=== PATIENT | male | born 1995 | race Hispanic/Latino ===

== ENCOUNTER 2023-02-22 00:05 | Emergency (ER) | payer BC ==
[~2023-02-22] VITALS: Ht 167.6 cm; Wt 93.4 kg
[2023-02-22] MEDS ORDERED: AZITHROMYCIN 250 MG TABLET PO ONE (00:30)
[2023-02-22] MEDS ORDERED: CEFTRIAXONE 1G VIAL IM ONE (00:30)
[2023-02-22 00:44] VITALS: BP 126/60
== END 2023-02-22 01:41 | disposition home or self-care (01) ==
LOC: EDH 00:05
DX: N34.2 Other urethritis (principal)
CPT/HCPCS: 99284; 87797; 87486; 96372; J0696

== ENCOUNTER 2025-04-23 23:19 | Emergency (ER) | payer BC ==
[~2025-04-23] VITALS: Ht 167.6 cm; Wt 99.8 kg
--- NOTE | 2025-04-23 23:21 | NUR ---
UA CUP PROVIDED
--- NOTE | 2025-04-24 00:04 | EKG ---
[facility] Test Date: 2025-04-23 Test Time: 23:59:55 Pat Name: DERRICK ARAMBULA Department: ED Patient ID: [id number] Room: Gender: M [employer] Internship: [id number] : 1995 Requested By: BONNIE GOMEZ Order Number: [id number] Reading MD: Chi Peraza Measurements Intervals [place] Rate: 74 P: 28 [place]: 145 QRS: 33 QRSD: 97 T: 5 QT: 375 QTc: 416 Interpretive Statements Sinus rhythm No previous ECG available for comparison Electronically Signed On 04-24-2025 16:24:24 CDT by Chi Peraza Please click the below link to view image of tracing.
[2025-04-24 00:05] VITALS: BP 141/75; PULSE 77; RESP 18; TEMP 98.4; O2SAT 99
[2025-04-24 00:22] LABS: CREATININE 1.1 mg/dL (0.5-1.3); GLOMERULAR FILTR. RATE CALC 93.0 mL/min (>90); GLUCOSE,RANDOM 107.0 mg/dL (70-105); SODIUM SERUM 138.0 mmol/L (136-145); UREA NITROGEN, BLOOD 14.0 mg/dL (7-18)
[2025-04-24 00:26] LABS: ASPARTATE AMINOTRANSFERASE 34.0 U/L (10-37); TOTAL PROTEIN, SERUM 7.9 g/dL (6.0-8.3)
[2025-04-24 00:31] LABS: CREATINE KINASE, TOTAL 139 U/L (21-232)
[2025-04-24 00:34] LABS: IMMATURE GRANULOCYTE ABSOLUTE 0.02 K/uL (0-1); NUCLEATED RED BLOOD CELLS 0.0 % (0.0-0.19); PLATELET COUNT (AUTO) 220 K/uL (130-400); RED BLOOD CELL COUNT(AUTO) 5.49 MIL/uL (4.50-6.20); RED CELL DISTRIBUTION WIDTH 11.5 % (11.0-15.5); WHITE BLOOD COUNT (AUTO) 8.5 K/uL (4.8-10.8)
[2025-04-24 00:44] LABS: APPEARANCE,URINE CLEAR (CLEAR); GLUCOSE, URINE (UA) NEGATIVE (NEGATIVE); LEUKOCYTE ESTERASE ,URINE NEGATIVE Leu/uL (NEGATIVE); NITRATE,URINE NEGATIVE (NEGATIVE); OCCULT BLOOD,URINE NEGATIVE (NEGATIVE)
[2025-04-24 00:52] LABS: ADD UA MICROSCOPIC NO
[2025-04-24 01:01] LABS: AMPHET/METH SCREEN,URINE NEGATIVE (NEGATIVE); BARBITURATE SCREEN, URINE NEGATIVE (NEGATIVE); CANNABINOID SCREEN,URINE NEGATIVE (NEGATIVE); COCAINE SCREEN,URINE NEGATIVE (NEGATIVE)
--- NOTE | 2025-04-24 01:36 | HMCIMG ---
EXAM: CR Chest, 1 view. CLINICAL HISTORY: Shortness of breath. COMPARISON: None. FINDINGS: The lungs show no infiltrate or other acute findings. No pleural effusion or pneumothorax. The cardiomediastinal silhouette is within normal limits. No acute osseous abnormality. IMPRESSION: No acute cardiopulmonary pathology is evident. /[place]
--- NOTE | 2025-04-24 02:29 | ERN ---
ED Note History of Present Illness Stated Complaint: SOB, HYPERVENTILLATION Chief Complaint: Shortness of Breath Time Seen by MD: 22:23 Dictation: This is a 29-year-old male who comes into the emergency room with complaints of hyperventilation shortness of breath and left-sided rib and breast pain when he took a deep breath. Apparently all this started today and he is very tired and has varying schedules due to his job in the evening he began feeling tired and lethargic so he did a few pushups and also had a cookout and did not feel like himself. He felt dizzy. No fevers chills or rigors the pain is mostly in the left breast rib area. No nausea vomitings diarrhea hematemesis or melena no headache diplopia blurred vision facial droop motor weakness or seizure activity. 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 Spouse at bedside during my evaluation, he stated that he usually drinks more than 12 oz of coffee in the morning and as he was tired in the evening he drank 12 oz of coffee prior to all these symptoms. Also had a little shakiness. Temperature 98.3 pulse 99 respirations 20 blood pressure 151/72 with a pulse o ximetry of 100% on room air Allergies: Coded Allergies: No Known Allergies (Unverified Allergy, Unknown, 02/22/23) Past Medical History Past Medical History: No Pertinent History Surgical History: None Family History: Negative Social History: Negative RN Note Reviewed/Agreed w/PFSH: Yes Review of System Dictation Constitutional: Negative for fever,chills, and weight loss Eyes: Negative for injury, pain,redness, and discharge ENT: Negative for injury,pain or swelling Cardiovascular: Positive for chest pain, and lightheaded denied palpitations, and edema Respiratory: Negative for shortness of breath, cough, and wheezing, Abdomen/GI: Negative for abdominal pain, nausea, vomiting, diarrhea, and constipation Back: Negative for injury and pain : Negative for injury, bleeding and discharge MS/Extremity: Negative for injury and deformity Skin: Negative for rash, and discoloration Neuro: Negative for headache, weakness, numbness, tingling, and seizure positive for shakiness Psych: Negative for suicide ideation, homicidal ideation, and hallucinations Initial Vital Sign VS Vital Signs Date Time Temp Pulse Resp B/P (MAP) Pulse Ox O2 Delivery O2 Flow Rate FiO2 04/23/25 23:20 98.2 99 20 151/72 100 Room Air 04/24/25 00:05 0 21 Physical Exam Dictation General: awake, alert, NAD overweight young male Head/Face: Normocephalic, atraumatic Eyes: PERRL, EOMI, vision at baseline ENT: oral cavity clear, TMs clear, no signs of infection Mallampati 4 Neck: Trachea midline, supple, no nuchal rigidity very short neck, crowded oropharynx Cardiovascular: RRR, normal S1/S2, No MRGs, no JVD Respiratory: CTAB, no respiratory distress, No rales or wheezes Abdomen: Soft, non-tender, non-distended, normal bowel sounds, no guarding or rebound. Skin: Warm, dry, normal turgor, no rash MS/Extremity: Pulses equal, no cyanosis, neurovascular intact, FROM Neuro: COAx4, GCS 15, strength 5/5, CN 2-12 intact, normal cerebellar exam, normal gait, Psych: Normal behavior, mood, and affect normal Extremities-trace edema without any palpable cords, Homans sign is negative Results (Laboratory/Radiology) Laboratory/Radiology Laboratory Tests Test 04/24/25 00:00 04/24/25 00:38 White Blood Count 8.5 K/uL (4.8-10.8) Red Blood Count 5.49 MIL/uL (4.50-6.20) Hemoglobin 16.2 g/dL (14.0-18.0) Hematocrit 45.0 % (42-54) Mean Corpuscular Volume 82.0 fL (79-99) Mean Corpuscular Hemoglobin 29.5 pg (27.0-33.0) Mean Corpuscular Hemoglobin Concent 36.0 g/dL (32.0-36.0) Red Cell Distribution Width 11.5 % (11.0-15.5) Platelet Count 220 K/uL (130-400) Mean Platelet Volume 11.1 fL (7.5-10.5) H Immature Granulocyte % (Auto) 0.2 % (0-1) Neutrophils (%) (Auto) 50.4 % (40.0-77.0) Lymphocytes (%) (Auto) 39.9 % (21.0-51.0) Monocytes (%) (Auto) 7.6 % (3.0-13.0) Eosinophils (%) (Auto) 1.4 % (0.0-8.0) Basophils (%) (Auto) 0.5 % (0.0-5.0) Neutrophils # (Auto) 4.3 K/uL (1.8-7.7) Lymphocytes # (Auto) 3.4 K/uL (1.0-4.8) Monocytes # (Auto) 0.7 K/uL (0.1-1.0) Eosinophils # (Auto) 0.12 K/uL (0.00-0.70) Basophils # (Auto) 0.04 K/uL (0.00-0.20) Absolute Immature Granulocyte (auto 0.02 K/uL (0-1) Nucleated Red Blood Cells 0.0 % (0.0-0.19) Sodium Level 138 mmol/L (136-145) Potassium Level 3.5 mmol/L (3.5-5.1) Chloride Level 99 mmol/L (101-111) L Carbon Dioxide Level 27 mmol/L (21-32) Blood Urea Nitrogen 14 mg/dL (7-18) Creatinine 1.1 mg/dL (0.5-1.3) Glomerular Filtration Rate Calc 93 mL/min (>90) Random Glucose 107 mg/dL (70-105) H Total Calcium 9.6 mg/dL (8.5-10.1) Total Bilirubin 0.7 mg/dL (0.2-1.0) Direct Bilirubin 0.1 mg/dL (0.0-0.3) Aspartate Amino Transf (AST/SGOT) 34 U/L (10-37) Alanine Aminotransferase (ALT/SGPT) 57 U/L (12-78) Alkaline Phosphatase 96 U/L (50-136) Ammonia 15 umol/L (11-32) Total Creatine Kinase 139 U/L (21-232) Troponin I High Sensitivity < 4.0 ng/L (4-75) L Total Protein 7.9 g/dL (6.0-8.3) Albumin 4.3 g/dL (3.5-5.0) Urine Color LIGHT-YELLOW (YELLOW) Urine Appearance CLEAR (CLEAR) Urine pH 5.0 (5.0-8.0) Urine Specific [place] 1.008 (1.001-1.031) Urine Protein NEGATIVE mg/dL (NEGATIVE) Urine Glucose (UA) NEGATIVE mg/dL (NEGATIVE) Urine Ketones NEGATIVE mg/dL (NEGATIVE) Urine Occult Blood NEGATIVE (NEGATIVE) Urine Nitrate NEGATIVE (NEGATIVE) Urine Bilirubin NEGATIVE mg/dL (NEGATIVE) Urine Urobilinogen 0.2 mg/dL (0.2-1.0) Urine Leukocyte Esterase NEGATIVE Dani/uL Urine Opiates Screen NEGATIVE (NEGATIVE) Urine Barbiturates Screen NEGATIVE (NEGATIVE) Urine Phencyclidine Screen NEGATIVE (NEGATIVE) Urine Amphetamines Screen NEGATIVE (NEGATIVE) Urine Benzodiazepines Screen NEGATIVE (NEGATIVE) Urine Cocaine Screen NEGATIVE (NEGATIVE) Urine Marijuana (THC) Screen NEGATIVE (NEGATIVE) Labs Reviewed?: Yes ED Course ED Course Orders Procedure Category Date Status Time Cbc With Differential LAB 04/23/25 Complete 23:54 Basic Metabolic Panel LAB 04/23/25 Complete 23:54 12 Lead Ekg Tracing- EKG 04/23/25 Resulted Technical 23:54 Ammonia LAB 04/23/25 Complete 23:54 Urinalysis Profile LAB 04/23/25 Complete 23:54 Drug Screen Urine LAB 04/23/25 Complete 23:54 Cardiac Panel LAB 04/23/25 Complete 23:54 Chest 1vw RAD 04/23/25 Resulted 23:54 Hepatic Function Panel LAB 04/24/25 Complete 00:00 Vital Signs Date Time Temp Pulse Resp B/P (MAP) Pulse Ox O2 Delivery O2 Flow Rate FiO2 04/24/25 00:05 98.4 77 18 141/75 99 Room Air* 0 21 04/23/25 23:20 98.2 99 20 151/72 100 Room Air We will perform diagnostic labs, advanced imaging and administer medications according to the patient's complaint. Once the results are available, will review and personally interpreted the labs to rule out any acute life- threatening emergency the trach require immediate intervention and treatment. I will then re-evaluate the patient after treatment and diagnostic exams have return to determine whether the patient requires any further testing, can safely be discharged home or need further admission to hospital for additional treatment and evaluation. Labs reviewed CBC with a normal limits BNP 7 overall normal chloride 99 LFTs with a normal limits urinalysis negative UDS negative troponins negative Chest x-ray no acute infiltrate, no acute abnormality noted I had a very long discussion with the patient and her spouse at bedside and discussed the possibilities that this may simply have been caffeine adverse reaction with ingestion of 12 oz of coffee around 5:00 p.m after which he began experiencing symptoms. Vasovagal episode is another possibility. I explained to him that his fatigue needs further workup including a home sleep study, checking thyroid and testosterone levels. I have also encouraged good sleep hygiene. HEART Score Response (Comments) Value History: Low suspicion (0) 0 EKG: Normal 0 Age: < 45yrs (0) 0 Risk Factors: No known risk factors (0) 0 Initial Troponin: Normal limit (0) 0 HEART Score Risk: Low Risk for MACE (1-3) Total 0 Medical Decision Making MDM Differential diagnosis: Atypical chest pain, pleurisy, gastroesophageal reflux, caffeine adverse reaction, vasovagal episode, heat exhaustion, electrolyte abnormalities Rationale: Tests considered and ordered secondary to shared decision making include: Previous outside records reviewed: Old ER visits. Risk of complication and/or morbidity or mortality of patient management: None Medications-Per medication reconciliation Need for hospitalization: Patient does not meet criteria for hospitalization. Need for emergency major/minor surgery: No There are no social concerns with this patient. Prescription drug management Prescriptions will include symptomatic care Patient's prior external medical records from other ER visits were reviewed by me as indicated. Prior testing and results from previous visits were reviewed. Prior tests were taken into account with medical decision making and resource u tilization, independent historian/historians were used to obtain complete medical history. I independently interpreted the test that were performed, results were reviewed by me and considered findings on radiology if ordered. Medical management and examination interpretation discussions were had by me with other qualified healthcare professionals as indicated for the patient's ca re. Problem List Problem List: (1) Caffeine adverse reaction (2) Atypical chest pain (3) Obesity (BMI 35.0-39.9 without comorbidity) DX & DISP Disposition: Discharge Departure Impression: Primary Impression: Caffeine adverse reaction Additional Impressions: Obesity (BMI 35.0-39.9 without comorbidity), Atypical chest pain Condition: Stable Additional Instructions: Patient and the caregiver have been informed of all the diagnostic tests and the imaging conducted during the today's visit to the emergency room and has verbalized understanding of the results I have personally reviewed and interpreted all diagnostic exams performed here in the ER today as well as the vital signs documented by the nursing staff. The patient is now being discharged to home and should follow up with the primary care physician or the specialist as directed by the ER staff. Follow-up with primary care provider in 1 to 2 days. Take medications as directed here in the emergency room. Okay to continue home medications unless otherwise discussed during your visit in the emergency room today. Return to your nearest emergency room if symptoms worsen or if there is no improvement. Call 911 if you need immediate assistance. Take Tylenol or Motrin [id number] as needed and if no contraindications are present. Increase oral hydration. A wound culture or urine culture was ordered here in the emergency room department please follow-up with primary care provider and advise them to get repeat ports from our facility. If you had any Liban wrap/splints that were applied here, please do not remove them until you see your primary care or specialty. Recommended that patient also pursue home sleep study, checking thyroid and testosterone levels. I have also encouraged good sleep hygiene Referrals: SELF,REFERRAL (PCP) BONNIE GOMEZ MD Apr 24, 2025 02:29
== END 2025-04-24 03:13 | disposition home or self-care (01) ==
LOC: EDH 23:19
DX: R07.89 Other chest pain (principal); T43.615A Adverse effect of caffeine, initial encounter; E66.9 Obesity, unspecified; Y92.89 Other specified places as the place of occurrence of the external cause
CPT/HCPCS: 36415; 71045; 80048; 80076; 80305; 81003; 82140; 82550; 84484; 85025; 93005; 99284